=== PATIENT | male | born 1985 | race American Indian/Alaskan Native ===

== ENCOUNTER 2018-12-21 16:33 | Inpatient (IN) | payer OTHER ==
[2018-12-21] MEDS ORDERED: Sodium Chloride 0.9% 1,000 ML IV STA (17:22)
[2018-12-21 17:52] LABS: BASO # 0.1 K/uL (0.0-0.2); EOS % 0.2 % (0.0-4.0); HEMOGLOBIN 14.9 g/dL (12.0-18.0); LYMPH # 1.7 K/uL (1.0-4.3); LYMPH % 28.9 % (20.0-40.0); MEAN CELL VOLUME 88.6 fL (80.0-94.0); MEAN CORPUSCULAR HEMOGLOBIN 28.9 pg (27.0-31.0); MEAN CORPUSCULAR HGB CONC 32.6 g/dL (33.0-37.0); MEAN PLATELET VOLUME 8.9 fL (7.2-11.7); MONO # 0.5 K/uL (0.0-0.8); NEUT # 3.6 K/uL (1.8-7.0); NEUT % 59.9 % (50.0-75.0); NRBC % 0.1 % (0.0-2.0); RBC 5.17 Mil/uL (4.40-5.90); RED CELL DISTRIBUTION WIDTH 14.3 % (11.5-14.5); WHITE BLOOD COUNT 5.9 K/uL (4.8-10.8)
[2018-12-21 17:59] LABS: SQUAMOUS EPITHIAL < 1 /hpf (0-5); URINE BILIRUBIN NEGATIVE (NEGATIVE); URINE BLOOD 1+ (NEGATIVE); URINE CLARITY Clear (Clear); URINE COLOR Yellow (YELLOW); URINE GLUCOSE (UA) NORMAL (Normal); URINE LEUKOCYTE ESTERASE NEG Leu/uL (Negative); URINE PROTEIN 2+ mg/dL (NEGATIVE); URINE UROBILINOGEN NORMAL mg/dL (0.2-1.0)
[2018-12-21 18:09] LABS: ALB/GLOB RATIO 1.3 (1.0-2.1); ALT/SGPT 21 U/L (21-72); AST/SGOT 45 U/L (17-59); BLOOD UREA NITROGEN 9 mg/dL (9-20); CALCIUM 8.5 mg/dl (8.6-10.4); GFR NON-AFRICAN AMERICAN > 60
[2018-12-21 18:11] LABS: BARBITURATES, UR NEGATIVE (NEGATIVE); BENZODIAZEPINES, UR NEGATIVE (NEGATIVE); OPIATES, UR NEGATIVE (NEGATIVE); PHENCYCLIDINE, UR NEGATIVE (NEGATIVE)
--- NOTE | 2018-12-21 18:34 | C.PDOC ---
History Of Present Illness 33 y/o alcoholic male presents to the ED requesting detox from alcohol. Patient denies having any medical complaints. He denies any drug use. Last drink was just prior to arrival. No suicidal or homicidal ideation. <Hyun Schmid - Last Filed: 12/21/18 19:19> History Per: Patient History/Exam Limitations: no limitations Onset/Duration Of Symptoms: Days Current Symptoms Are (Timing): Still Present Modifying Factor(s): Alcohol <Hyun Schmid - Last Filed: 12/21/18 19:19> <Sara Morse - Last Filed: 12/21/18 20:04> Time Seen by Provider: 12/21/18 17:15 Chief Complaint (Nursing): Substance Abuse Past Medical History Reviewed: Historical Data, Nursing Documentation, Vital Signs Vital Signs: Last Vital Signs Temp 98 F 12/21/18 16:43 Pulse 130 H 12/21/18 16:43 Resp 17 12/21/18 16:43 BP 143/94 H 12/21/18 16:43 Pulse Ox 98 12/21/18 16:43 Surgical History: No Surg Hx Family History: States: Unknown Family Hx - Social History Hx Tobacco Use: Yes (cigars) Hx Alcohol Use: Yes Hx Substance Use: Yes - Immunization History Hx Tetanus Toxoid Vaccination: Yes Hx Influenza Vaccination: No Hx Pneumococcal Vaccination: No <Hyun Schmid - Last Filed: 12/21/18 19:19> Vital Signs: Last Vital Signs Temp 98 F 12/21/18 16:43 Pulse 90 12/21/18 19:18 Resp 18 12/21/18 19:18 BP 120/78 12/21/18 19:18 Pulse Ox 98 12/21/18 19:21 <Sara Morse - Last Filed: 12/21/18 20:04> Review Of Systems Except As Marked, All Systems Reviewed And Found Negative. Constitutional: Negative for: Fever Cardiovascular: Negative for: Chest Pain Respiratory: Negative for: Shortness of Breath Gastrointestinal: Negative for: Vomiting, Abdominal Pain Psych: Positive for: Other (ETOH abuse). Negative for: Suicidal ideation (or homicidal) <Hyun Schmid - Last Filed: 12/21/18 19:19> Physical Exam - Physical Exam Appears: Non-toxic, No Acute Distress Skin: Warm, Dry Head: Atraumatic, Normacephalic Eye(s): bilateral: Normal Inspection, PERRL, EOMI Neck: Normal ROM Chest: Symmetrical Cardiovascular: Rhythm Regular, No Murmur Respiratory: Normal Breath Sounds, No Accessory Muscle Use Gastrointestinal/Abdominal: Soft, No Tenderness, No Distention Extremity: Bilateral: Atraumatic, Normal Color And Temperature Pulses: Left Dorsalis Pedis: Normal, Right Dorsalis Pedis: Normal Neurological/Psych: Oriented x3 <Hyun Schmid - Last Filed: 12/21/18 19:19> ED Course And Treatment - Laboratory Results Result Diagrams: 12/21/18 17:47 12/21/18 17:47 Lab Results: Total Bilirubin 0.4 mg/dL (0.2-1.3) 12/21/18 17:47 AST 45 U/L (17-59) 12/21/18 17:47 ALT 21 U/L (21-72) 12/21/18 17:47 Alkaline Phosphatase 71 U/L (38-126) 12/21/18 17:47 Total Protein 8.8 g/dL (6.3-8.3) H 12/21/18 17:47 Albumin 5.0 g/dL (3.5-5.0) 12/21/18 17:47 Globulin 3.9 gm/dL (2.2-3.9) 12/21/18 17:47 Albumin/Globulin Ratio 1.3 (1.0-2.1) 12/21/18 17:47 Urine Color Yellow (YELLOW) 12/21/18 17:47 Urine Clarity Clear (Clear) 12/21/18 17:47 Urine pH 5.0 (5.0-8.0) 12/21/18 17:47 Ur Specific [place] 1.024 (1.003-1.030) 12/21/18 17:47 Urine Protein 2+ mg/dL (NEGATIVE) H 12/21/18 17:47 Urine Glucose (UA) Normal mg/dL (Normal) 12/21/18 17:47 Urine Ketones 2+ mg/dL (NEGATIVE) H 12/21/18 17:47 Urine Blood 1+ (NEGATIVE) H 12/21/18 17:47 Urine Nitrate Negative (NEGATIVE) 12/21/18 17:47 Urine Bilirubin Negative (NEGATIVE) 12/21/18 17:47 Urine Urobilinogen Normal mg/dL (0.2-1.0) 12/21/18 17:47 Ur Leukocyte Esterase Neg Swetha/uL (Negative) 12/21/18 17:47 Urine WBC (Auto) 1 /hpf (0-5) 12/21/18 17:47 Urine RBC (Auto) 3 /hpf (0-3) 12/21/18 17:47 Ur Squamous Epith Cells < 1 /hpf (0-5) 12/21/18 17:47 Hyaline Casts 6-10 /lpf (0-2) H 12/21/18 17:47 ECG Rhythm: Sinus Tachycardia Rate From EC O2 Sat by Pulse Oximetry: 98 (RA) Pulse Ox Interpretation: Normal Progress Note: Labs ordered for medical clearance. IV fluids infusing. Pending crisis to arrange detox placement. Medically cleared and stable to be admitted for Detox. <Hyun Schmid - Last Filed: 12/21/18 19:19> - Laboratory Results Result Diagrams: 12/21/18 17:47 12/21/18 17:47 Lab Results: Total Bilirubin 0.4 mg/dL (0.2-1.3) 12/21/18 17:47 AST 45 U/L (17-59) 12/21/18 17:47 ALT 21 U/L (21-72) 12/21/18 17:47 Alkaline Phosphatase 71 U/L (38-126) 12/21/18 17:47 Total Protein 8.8 g/dL (6.3-8.3) H 12/21/18 17:47 Albumin 5.0 g/dL (3.5-5.0) 12/21/18 17:47 Globulin 3.9 gm/dL (2.2-3.9) 12/21/18 17:47 Albumin/Globulin Ratio 1.3 (1.0-2.1) 12/21/18 17:47 Urine Color Yellow (YELLOW) 12/21/18 17:47 Urine Clarity Clear (Clear) 12/21/18 17:47 Urine pH 5.0 (5.0-8.0) 12/21/18 17:47 Ur Specific [place] 1.024 (1.003-1.030) 12/21/18 17:47 Urine Protein 2+ mg/dL (NEGATIVE) H 12/21/18 17:47 Urine Glucose (UA) Normal mg/dL (Normal) 12/21/18 17:47 Urine Ketones 2+ mg/dL (NEGATIVE) H 12/21/18 17:47 Urine Blood 1+ (NEGATIVE) H 12/21/18 17:47 Urine Nitrate Negative (NEGATIVE) 12/21/18 17:47 Urine Bilirubin Negative (NEGATIVE) 12/21/18 17:47 Urine Urobilinogen Normal mg/dL (0.2-1.0) 12/21/18 17:47 Ur Leukocyte Esterase Neg Swetha/uL (Negative) 12/21/18 17:47 Urine WBC (Auto) 1 /hpf (0-5) 12/21/18 17:47 Urine RBC (Auto) 3 /hpf (0-3) 12/21/18 17:47 Ur Squamous Epith Cells < 1 /hpf (0-5) 12/21/18 17:47 Hyaline Casts 6-10 /lpf (0-2) H 12/21/18 17:47 <Sara Morse - Last Filed: 12/21/18 20:04> Disposition - Disposition Disposition Time: 19:21 <Hyun Schmid - Last Filed: 12/21/18 19:19> Discussed With : Karen John Comment: accepted the pt on his ser vice and took over the care at 8:03 PM Doctor Will See Patient In The: Hospital Counseled Patient/Family Regarding: Studies Performed, Diagnosis <Sara Morse - Last Filed: 12/21/18 20:04> - Disposition Disposition: HOSPITALIZED Condition: FAIR Forms: [email or web address] (Khmer) - Clinical Impression Clinical Impression: Alcohol dependence - PA / ASSEMBLY INSTRUCTIONS WRITER / Resident Statement MD/DO has reviewed & agrees with the documentation as recorded. - Scribe Statement The provider has reviewed the documentation as recorded by the Dianaibford Allen All medical record entries made by the Dianaibford were at my direction and personal ly dictated by me. I have reviewed the chart and agree that the record accurately reflects my personal performance of the history, physical exam, medical decision making, and the department course for this patient. I have also personally directed, reviewed, and agree with the discharge instructions and disposition. <Hyun Schmid - Last Filed: 12/21/18 19:19> Physician Patient Turnover Patient Signed Over To: Sara Morse Handoff Comments: Pending acceptance from psychiatrist for Detox. <Hyun Schmid - Last Filed: 12/21/18 19:19> Decision To Admit <Hyun Schmid - Last Filed: 12/21/18 19:19> - Pt Status Changed To: Hospital Disposition Of: Inpatient - Admit Certification Admit to Inpatient:: After my assessment, the patient will require hospitalization for at least two midnights. This is because of the severity of symptoms shown, intensity of services needed, and/or the medical risk in this patient being treated as an outpatient. - InPatient: Physician Admission Certification: I certify that this patient requires 2 or m ore midnights of care for the following reason:: After my assessment, the patient will require hospitalization for at least two midnights. This is because of the severity of symptoms shown, intensity of services needed, and/or the medical risk in this patient being treated as an outpatient. - . Bed Request Type: Detox Admitting Physician: Karen John <Sara Morse - Last Filed: 12/21/18 20:04> - . Patient Diagnosis: Alcohol dependence
--- NOTE | 2018-12-21 20:37 | PCM.BM ---
<Skye Donovan - Last Filed: 12/21/18 20:35> Treatment Plan Problems - Problems identified on initial assessmt denial Date Initiated: 12/21/18 Time Initiated: 20:36 Assessment reference: NA Status: Active anxiety Date Initiated: 12/21/18 Time Initiated: 20:36 Assessment reference: NA Status: Active defensive coping Date Initiated: 12/21/18 Time Initiated: 20:36 Assessment reference: NA Status: Active Treatment assets and liabiliti Patient Assests: ADL independent Patient Liabilities: substance abuse, medical problems - Milieu Protocol Maintain good personal hygiene: daily Encourage regular showers, daily Remind patient to perform daily oral care, daily Assist patient to perform ADL's Maintain personal safety: every shift Educate patient to report safety concerns to staff, every shift Monitor environment for contraband/sharps Medication safety: Monitor for expected outcome, potential side effects: every shift, Assess barriers to learning: every shift, Assess readiness for medication education: every shift <Karen John - Last Filed: 12/22/18 10:06> - Diagnosis (1) Alcohol dependence Status: Acute Interventions: 12/22/18 10:06 * Assess 7x/week regarding severity of withdrawal * Educate regarding risks, benefits, side effects and alternatives of medications * Use Motivational Interviewing for abstinence * Use CBT for relapse prevention * Medication management for withdrawal symptoms * Encourage medication assisted treatment *
[2018-12-21] MEDS ORDERED: Pneumococcal 23-Valent Vaccine IM ONE (21:23)
[2018-12-22] MEDS ORDERED: Multiple Vitamins Tab PO SCH (10:00)
--- NOTE | 2018-12-22 10:04 | PCM.PSYCH ---
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 Pt states that he came to the hospital because he wanted to "kick his alcohol habit." Pt states he started drinking at 13 years old, but it became a real problem starting at age 25. Pt states that he drinks 1/2 to 1 pint of liquor per day since 25 years old, with his last drink being yesterday. Pt reports that the drinking is only a problem after he finishes work and has idle time. Pt does not drink while working, nor does have any cravings to drink while busy. Pt admits to smoking marijuana "once in a while", with his last smoke of half a joint being yesterday. Pt denies cigarette use. Pt has a history of rehab at [facility] in [place] for a 9 month program. Pt denies having been to detox or inpatient psych before. Pt denies feeling down or depressed. Pt denies suicidal or homicidal ideations, visual or auditory hallucinations, or paranoia at this time. Past Psych Hx: Denies any admission or treatment Fam Psych Hx: denies PMH: HTN - PSH: denies Meds: Norvasc Allergies: denies Current Medications: Active Medications Generic Name Dose Route Start Last Admin Trade Name Freq PRN Reason Stop Dose Admin Chlordiazepoxide 25 mg 12/21/18 22:33 12/21/18 22:41 Librium PO 25 mg Q6 PRN Administration alcohol withdrawal Chlordiazepoxide 25 mg 12/22/18 00:00 12/22/18 08:36 Librium PO 12/26/18 23:59 25 mg Q4H JORDAN Administration Taper Clonidine HCl 0.1 mg 12/21/18 22:57 12/21/18 23:42 Catapres PO 0.1 mg Q4H PRN Administration Symptoms of alcohol withdrawl Folic Acid 1 mg 12/22/18 10:00 12/22/18 09:55 Folic Acid PO 1 mg DAILY JORDAN Administration Influenza Virus Vaccine 60 mcg 12/23/18 09:00 Flucelvax Quad [id number] Syr IM 12/23/18 09:01 .ONCE ONE Multivitamins 1 tab 12/22/18 10:00 12/22/18 09:55 Hexavitamin PO 1 tab DAILY JORDAN Administration Pneumococcal Polyvalent Vaccine 0.5 ml 12/23/18 09:00 Pneumovax 23 Vaccine IM 12/23/18 09:01 .ONCE ONE Thiamine HCl 100 mg 12/22/18 10:00 12/22/18 09:55 Vitamin B1 Tab PO 100 mg DAILY JORDAN Administration Trazodone HCl 50 mg 12/21/18 22:32 12/21/18 22:41 Desyrel PO 50 mg HS PRN Administration insomia Past Psychiatric History - Past Psychiatric History Previous Treatment History: None Pertinent Medical Hx (Current Medical&Sleep Prob, Allergies): Allergies Allergy/AdvReac Type Severity Reaction Status Date / Time No Known Allergies Allergy Unverified 12/21/18 16:47 amLODIPine [Norvasc] 2.5 mg PO DAILY 12/21/18 Review of Systems - Psychiatric Psychiatric: Abnormal Sleep Pattern, Anxiety, Change in Appetite, Difficulty Concentrating. absent: Hallucinations, Homicidal Ideation, Paranoia, Suicidal Ideation Mental Status Examination - Personal Presentation Personal Presentation: Looks stated age - Affect Affect: Constricted - Motor Activity Motor Activity: Calm - Reliability in Providing Information Reliability in Providing Information: Good - Speech Speech: Organized - Mood Mood: Anxious - Formal Thought Process Formal Thought Process: No Impairment - Cognitive Functions Orientation: Person, Place, Situation, Time Sensorium: Alert Attention/Concentration: Easily distracted Estimate of Intelligence: Average Judgement: Intact, as evidence by: Insight regarding need for hospitalization Memory: Recent intact, as evidence by: Ability to recall events of the day, Remote intact, as evidenced by: Abilit to recall sig. life events - Risk Risk: Withdrawal, Diminished functioning - Strength & Assets Inventory Strength & Assets Inventory: Cooperative - Limitations Limitations: Other DSM 5 DX - DSM 5 DSM 5 Diagnosis: Alcohol withdrawal Alcohol use d/o - severe Cannabis use d/o - severe - Recommended/Plan of Treatment Treatment Recommendations and Plan of Treatment: Taper with [place] Start Folic Acid, Thiamine, Multivitamins Norvasc for blood pressure Gabapentin for augmentation As needed medications Clonidine, Trazodone All risks, benefits and alternatives of the meds discussed, and the pt agreed and understood. Attend groups and activities Supportive therapy and psychoeducation [place] for abstinence CBT for relapse prevention Encourage MAT Refer to rehab or IOP, and self-help groups Teach healthy lifestyle methods, i.e. diet, exercise, meditation 33 min Projected ELOS: 4-5 days - Smoking Cessation Smoking Cessation Initiated: No
--- NOTE | 2018-12-22 11:08 | CARD ---
APPROVED REPORT Date of service: 12/21/2018 EKG Measurement Heart [id number] <Conclusion> Sinus tachycardia Possible Left atrial enlargement Septal infarct, age undetermined Abnormal ECG
[2018-12-22 18:05] VITALS: BP 132/89; PULSE 88; RESP 18; TEMP 98.2; O2SAT 99
[2018-12-22] MEDS ORDERED: Aluminum Hydroxide/Magnesium Hydroxide Susp (30 mL) PO PRN (18:16)
--- NOTE | 2018-12-22 21:33 | PCM.PYCHDC ---
Mental Status Examination - Mental Status Examination Orientation: Person Discharge Summary - Discharge Note Consultations:: List each consultation separately and include: 1. Reason for request. 2. Findings. 3. Follow-up Summary of Hospital Course include:: 1. Description of specific treatment plan utilized for patients during their course of treatmen. 2. Summarize the time- course for resolution of acute symptoms and/or regressed behaviors. 3. Describe issues identified and worked on during hospitalization. 4. Describe medication utilized. 5. Describe medical problems identified and treated. 6. 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 Pt states that he came to the hospital because he wanted to "kick his alcohol habit." Pt states he started drinking at 13 years old, but it became a real problem starting at age 25. Pt states that he drinks 1/2 to 1 pint of liquor per day since 25 years old, with his last drink being yesterday. Pt reports that the drinking is only a problem after he finishes work and has idle time. Pt does not drink while working, nor does have any cravings to drink while busy. Pt admits to smoking marijuana "once in a while", with his last smoke of half a joint being yesterday. Pt denies cigarette use. Pt has a history of rehab at [facility] in [place] for a 9 month program. Pt denies having been to detox or inpatient psych before. Pt denies feeling down or depressed. Pt denies suicidal or homicidal ideations, visual or auditory hallucinations, or paranoia at this time. Past Psych Hx: Denies any admission or treatment Fam Psych Hx: denies PMH: HTN - PSH: denies Meds: Norvasc Allergies: denies - Final Diagnosis (DSM 5) Condition upon Discharge: FAIR Disposition: AGAINST MEDICAL ADVICE Follow-up Treatment Plan: Taper with [place] Start Folic Acid, Thiamine, Multivitamins Norvasc for blood pressure Gabapentin for augmentation As needed medications Clonidine, Trazodone All risks, benefits and alternatives of the meds discussed, and the pt agreed and understood. Attend groups and activities Supportive therapy and psychoeducation [place] for abstinence CBT for relapse prevention Encourage MAT Refer to rehab or IOP, and self-help groups Teach healthy lifestyle methods, i.e. diet, exercise, meditation 33 min
[2018-12-23] MEDS ORDERED: Influenza Vaccine 60 mcg/0.5 mL SYR (4YR UP) IM ONE (09:00)
[2018-12-23] MEDS ORDERED: Pneumococcal 23-Valent Vaccine IM ONE (09:00)
== END 2018-12-22 19:39 | disposition left against medical advice (07) | DRG 749 ==
LOC: C.ER 16:33 → C.7D 20:02
PROVIDERS: ADMIT Psychiatry & Neurology Psychiatry; ATTEND Psychiatry & Neurology Psychiatry
PROC: HZ2ZZZZ Detoxification Services for Substance Abuse Treatment (ICD-10-PCS; principal; 2018-12-21)
PROC: HZ52ZZZ Individual Psychotherapy for Substance Abuse Treatment, Cognitive-Behavioral (ICD-10-PCS; 2018-12-21)
PROC: HZ59ZZZ Individual Psychotherapy for Substance Abuse Treatment, Supportive (ICD-10-PCS; 2018-12-21)
PROC: HZ56ZZZ Individual Psychotherapy for Substance Abuse Treatment, Psychoeducation (ICD-10-PCS; 2018-12-21)
PROC: HZ42ZZZ Group Counseling for Substance Abuse Treatment, Cognitive-Behavioral (ICD-10-PCS; 2018-12-21)
PROC: HZ46ZZZ Group Counseling for Substance Abuse Treatment, Psychoeducation (ICD-10-PCS; 2018-12-21)
PROC: GZHZZZZ Group Psychotherapy (ICD-10-PCS; 2018-12-21)
PROC: GZ58ZZZ Individual Psychotherapy, Cognitive-Behavioral (ICD-10-PCS; 2018-12-21)
PROC: GZ56ZZZ Individual Psychotherapy, Supportive (ICD-10-PCS; 2018-12-21)
DX: F10.230 Alcohol dependence with withdrawal, uncomplicated (principal); F12.20 Cannabis dependence, uncomplicated; Y90.8 Blood alcohol level of 240 mg/100 ml or more; I10 Essential (primary) hypertension; F41.9 Anxiety disorder, unspecified